=== PATIENT | female | born 1995 | race Two or more races ===

== ENCOUNTER → 2024-11-01 | Outpatient (CLI) | payer OTHER, SELFPAY ==
[2024-11-01 15:58] LABS: PLATELET COUNT, AUTOMATED 292 10^3/uL (150-450)
[2024-11-01 16:51] LABS: Trichomonas vaginalis (AMP) NOT DETECTED (NEGATIVE)
[2024-11-01 16:53] LABS: HIV 1&2 SCREEN NEGATIVE (NEGATIVE)
[2024-11-01 17:00] LABS: HEPATITIS C VIRUS ABY INDEX < 0.02 INDEX (<0.8)
[2024-11-01 17:15] LABS: GC DNA AMPLIFICATION NEGATIVE (NEGATIVE)
== END ==
LOC: M PLALAB 13:58
PROVIDERS: ATTEND Nurse Practitioner Family
DX: Z34.80 Encounter for supervision of other normal pregnancy, unspecified trimester (principal)

== ENCOUNTER → 2024-11-01 | Outpatient (REF) | payer OTHER, SELFPAY | LOC: M PLALAB 13:48 | PROVIDERS: ATTEND Nurse Practitioner Family | DX: Z53.9 Procedure and treatment not carried out, unspecified reason (principal) ==

== ENCOUNTER → 2024-11-29 | Outpatient (CLI) | payer OTHER | LOC: M PLALAB 10:44 | PROVIDERS: ATTEND Specialist | DX: Z34.80 Encounter for supervision of other normal pregnancy, unspecified trimester (principal); Z3A.00 Weeks of gestation of pregnancy not specified ==

== ENCOUNTER → 2024-12-29 | Outpatient (CLI) | payer OTHER | LOC: M WHC 13:49 | PROVIDERS: ATTEND Specialist | DX: Z36.89 Encounter for other specified antenatal screening (principal); Z3A.19 19 weeks gestation of pregnancy ==

== ENCOUNTER 2025-01-14 12:08 | Emergency (ER) | payer OTHER ==
[2025-01-14 12:10] VITALS: BP 115/73; TEMP 98.1; O2SAT 100
[2025-01-14] MEDS ORDERED: PRENTAB9 PO (12:33)
== END 2025-01-14 12:15 | disposition admitted as inpatient to this hospital (09) ==
LOC: M ED 12:08
DX: Z53.21 Procedure and treatment not carried out due to patient leaving prior to being seen by health care provider (principal)

== ENCOUNTER 2025-01-14 12:16 | Outpatient (CLI) | payer OTHER ==
[~2025-01-14] VITALS: Ht 157.5 cm; Wt 70.0 kg
[2025-01-14] MEDS ORDERED: PRENTAB9 PO (12:33)
[2025-01-14 12:34] VITALS: BP 111/72
[2025-01-14] MEDS ORDERED: HOME MED LIST COMPLETE! XX SCH (12:35)
[2025-01-14] MEDS: ONDANSETRON 4MG/2ML VIAL IV ONE (13:04)
[2025-01-14] MEDS: LR 1,000 ML IV ONE (13:05)
[2025-01-14 13:23] VITALS: BP 106/62
[2025-01-14 13:25] LABS: PLATELET COUNT, AUTOMATED 241 10^3/uL (150-450)
[2025-01-14 13:40] LABS: ALT/SGPT 42 U/L (7.0-40); AST/SGOT 27 U/L (<34); CALCIUM LEVEL 8.8 MG/DL (8.5-10.1); CARBON DIOXIDE LEVEL 24 MMOL/L (20-31); CHLORIDE LEVEL 105 MMOL/L (98-107); CREATININE FOR GFR 0.49 MG/DL (0.55-1.30); GLOMERULAR FILTRATION RATE > 90.0 (>60); POTASSIUM SERUM 4.0 MMOL/L (3.5-5.1); SODIUM LEVEL 138 MMOL/L (136-145)
[2025-01-14 13:51] LABS: KETONE, URINE AUTO RFX NEGATIVE (NEGATIVE); LEUKOCYTE ESTERASE UR AUTO RFX NEGATIVE (NEGATIVE); MUCUS, URINE RFX SMALL (NEGATIVE); NITRITE, URINE AUTO RFX NEGATIVE (NEGATIVE); RBC, URINE AUTO RFX 2 /HPF (0-3); SQUAM EPITHELIAL CELL UR AURFX 14 /HPF (0-6); WBC, URINE AUTO RFX 2 /HPF (0-3)
[2025-01-14] MEDS: MORPHINE 4 MG/ML 1 ML VIAL IV ONE ×3 (13:53→21:21)
[2025-01-14] MEDS: LR 1,000 ML IV SCH (13:54)
[2025-01-14 15:07] VITALS: BP 110/69
[2025-01-14] MEDS: ONDANSETRON 4MG/2ML VIAL IV PRN (16:29)
[2025-01-14 17:08] VITALS: BP 116/66
[2025-01-14 21:44] LABS: PLATELET COUNT, AUTOMATED 229 10^3/uL (150-450)
[2025-01-14] MEDS ORDERED: MORPHINE 4 MG/ML 1 ML VIAL IV PRN (22:45)
[2025-01-14 22:49] VITALS: BP 99/58
[2025-01-14] MEDS: cefTRIAXone SOD 2 GM in DEXTROSE 5% (D5W) ADV/MINI-BAG 50 ML IV ONE (23:02)
[2025-01-14] MEDS: ACETAMINOPHEN 500 MG TAB PO PRN (23:02)
[2025-01-15 02:55] VITALS: BP 104/58
[2025-01-15 06:38] LABS: PLATELET COUNT, AUTOMATED 214 10^3/uL (150-450)
[2025-01-15 06:39] VITALS: BP 102/58
[2025-01-15 07:58] VITALS: BP 101/56
[2025-01-15 10:27] VITALS: BP 101/55
[2025-01-15 13:09] VITALS: BP 122/74
== END 2025-01-15 13:20 | disposition home or self-care (01) ==
LOC: M LDO 12:16
PROVIDERS: ATTEND Advanced Practice Midwife
DX: O26.892 Other specified pregnancy related conditions, second trimester (principal); R10.31 Right lower quadrant pain; M54.50 Low back pain, unspecified; O21.8 Other vomiting complicating pregnancy; Z3A.21 21 weeks gestation of pregnancy
CPT/HCPCS: 36415; 59025; 74181; 76775; 76857; 80053; 81001; 85027; 96360; 96361; 96374; 96375; G0463; J0696; J2405

== ENCOUNTER → 2025-02-07 | Outpatient (CLI) | payer OTHER ==
[~2025-02-07] MED LIST: PRENTAB9 PO
== END ==
LOC: M WHC 14:03
PROVIDERS: ATTEND Nurse Practitioner Family
DX: Z34.02 Encounter for supervision of normal first pregnancy, second trimester (principal)